=== PATIENT | female | born 1980 | race Hispanic/Latino ===

== ENCOUNTER 2016-12-23 22:58 | Emergency (ER) | payer OTHER ==
[2016-12-23 23:02] VITALS: BP 121/71; PULSE 73; RESP 16; TEMP 98.1; O2SAT 100
--- NOTE | 2016-12-23 23:27 | ED PDOC ---
HPI: General Adult Time Seen by Provider: 12/23/16 23:06 Chief Complaint (Nursing): Body Fluid Exposure Chief Complaint (Provider): Bodily fluid exposure History Per: Patient Additional Complaint(s): Pt. states she was helping with an intoxicated pt. today who pulled out his IV and blood splattered on her bare R hand where she has an abrasion from her eczema. Denies pain. Pt. states she did wash her hand after getting blood on it. Past Medical History Reviewed: Historical Data, Nursing Documentation, Vital Signs Vital Signs: Last Vital Signs Temp 98.1 F 12/23/16 22:59 Pulse 73 12/23/16 22:59 Resp 16 12/23/16 22:59 BP 121/71 12/23/16 22:59 Pulse Ox 100 12/23/16 23:35 - Medical History PMH: Hypothyroidism - Family History Family History: States: No Known Family Hx - Immunization History Hx Tetanus Toxoid Vaccination: Yes - Allergies Allergies/Adverse Reactions: Allergies Allergy/AdvReac Type Severity Reaction Status Date / Time Penicillins Allergy RASH Verified 11/06/16 19:44 Review of Systems ROS Statement: Except As Marked, All Systems Reviewed And Found Negative Physical Exam - Physical Exam Appears: Positive for: Well, Non-toxic, No Acute Distress Extremity: Positive for: Other (R dorsal hand with very superficial abrasion) - ECG O2 Sat by Pulse Oximetry: 100 - Progress ED Course And Treament: Labs ordered. Pt. was offered HIV prophylaxis but declined. Disposition - Clinical Impression Clinical Impression: Exposure to blood - Patient ED Disposition Is Patient to be Admitted: No - Disposition Disposition: Routine/Home Disposition Time: 23:55 Condition: STABLE Instructions: Body Substance Exposure (ED)
== END 2016-12-24 00:25 | disposition home or self-care (01) ==
LOC: H.ER 22:58
DX: Z77.21 Contact with and (suspected) exposure to potentially hazardous body fluids (principal); E03.9 Hypothyroidism, unspecified; L30.9 Dermatitis, unspecified